=== PATIENT | male | born 1955 | race Caucasian/White ===

== ENCOUNTER 2017-05-15 18:30 | Emergency (ER) | payer MEDICAID ==
[~2017-05-15] VITALS: Ht 170.2 cm; Wt 79.4 kg
[2017-05-15] MEDS ORDERED: Mylanta II UD 30ml ORAL ONE (19:15)
[2017-05-15] MEDS ORDERED: Dicyclomine HCl 10mg/5ml oral soln ORAL ONE (19:15)
--- NOTE | 2017-05-15 19:26 | Emergency Room Report ---
History of Present Illness General Chief Complaint: Diarrhea Source: Patient Present Illness HPI Patient is a a 61-year-old male who presented after increased abdominal cramping and diarrhea. Patient had been seen at a clinic and was for the emergency department for tachycardia. Patient had been having diarrhea for several days which is watery in nature. Patient reports having some possible bad food exposure. He denies any fever. He denies any black or bloody stools. Patient had not been having any abdominal pain currently. He stated that he vomited several times earlier in the week but has not been vomiting regularly Allergies: Coded Allergies: No Known Allergies (Unverified , 05/15/17) Patient History Past Medical History: see triage record Reviewed Nursing Documentation: PMH: Agreed, PSxH: Agreed Nursing Documentation-PMH Hx Hypertension: Yes Hx Diabetes: Yes Review of Systems All Other Systems: negative except mentioned in HPI Physical Exam Vital Signs Date Time Temp Pulse Resp B/P (MAP) Pulse Ox O2 Delivery O2 Flow Rate FiO2 05/15/17 18:45 98.2 98 18 135/77 97 Room Air Sp02 EP Interpretation: reviewed, normal General Appearance: normal inspection, well appearing, no apparent distress, alert, GCS 15 Head: atraumatic ENT: normal ENT inspection, hearing grossly normal, normal voice Neck: normal inspection, full range of motion, supple, no bony tend Respiratory: normal inspection, lungs clear, normal breath sounds, no respiratory distress, no retraction, no wheezing Cardiovascular #1: regular rate, rhythm, no edema Gastrointestinal: normal inspection, normal bowel sounds, non tender, soft, no guarding, no hernia Genitourinary: no CVA tenderness Musculoskeletal: normal inspection, back normal, normal range of motion Neurologic: normal inspection, alert, responsive, speech normal Psychiatric: normal inspection, judgement/insight normal, mood/affect normal Skin: normal inspection, normal color, no rash Medical Decision Making Diagnostic Impression: Primary Impression: Dehydration Additional Impression: Gastroenteritis ER Course Patient presented for abdominal pain. Differential diagnoses included ischemic bowel, appendicitis, perforated viscus, abdominal aortic aneurysm, inferior myocardial infarction, viral gastroenteritis Because of complexity of patient's case laboratory testing and imaging studies were ordered. The patient was given IV fluids as well as an antispasmodic medication. The patient was noted to have improvement in his symptoms after IV hydration. The patient is advised to follow up with primary care doctor in 1-2 days. Patient is advised to return if any worsening condition or if any changes in status that are concerning. Labs Test 05/15/17 19:15 05/15/17 19:50 White Blood Count 7.0 K/UL (4.8-10.8) Red Blood Count 5.35 M/UL (4.70-6.10) Hemoglobin 16.4 G/DL (14.2-18.0) Hematocrit 46.3 % (42.0-52.0) Mean Corpuscular Volume 87 FL (80-99) Mean Corpuscular Hemoglobin 30.6 PG (27.0-31.0) Mean Corpuscular Hemoglobin Concent 35.4 G/DL (32.0-36.0) Red Cell Distribution Width 12.1 % (11.6-14.8) Platelet Count 214 K/UL (150-450) Mean Platelet Volume 6.4 FL (6.5-10.1) Neutrophils (%) (Auto) 57.6 % (45.0-75.0) Lymphocytes (%) (Auto) 30.0 % (20.0-45.0) Monocytes (%) (Auto) 8.2 % (1.0-10.0) Eosinophils (%) (Auto) 3.0 % (0.0-3.0) Basophils (%) (Auto) 1.1 % (0.0-2.0) Sodium Level 139 mEQ/L (135-145) Potassium Level 3.8 mEQ/L (3.4-4.9) Chloride Level 102 mEQ/L (98-107) Carbon Dioxide Level 24 mEQ/L (20-30) Anion Gap 13 (5-15) Blood Urea Nitrogen 18 mg/dL (7-23) Creatinine 0.9 mg/dL (0.7-1.2) Estimat Glomerular Filtration Rate > 60 mL/min (>60) Glucose Level 130 mg/dL (74-106) Calcium Level 9.5 mg/dL (8.6-10.2) Total Bilirubin 0.5 mg/dL (0.0-1.2) Aspartate Amino Transf (AST/SGOT) 21 U/L (5-40) Alanine Aminotransferase (ALT/SGPT) 31 U/L (3-41) Alkaline Phosphatase 100 U/L (40-129) Total Protein 7.0 g/dL (6.6-8.7) Albumin 4.8 g/dL (3.5-5.2) Globulin 2.2 g/dL Albumin/Globulin Ratio 2.1 (1.0-2.7) Lipase 18 U/L (< 60) Urine Color Pale yellow Urine Appearance Slightly cloudy Urine pH 5 (4.5-8.0) Urine Specific Crane 1.015 (1.005-1.035) Urine Protein 2+ (NEGATIVE) Urine Glucose (UA) 3+ (NEGATIVE) Urine Ketones Negative (NEGATIVE) Urine Occult Blood Negative (NEGATIVE) Urine Nitrite Negative (NEGATIVE) Urine Bilirubin Negative (NEGATIVE) Urine Urobilinogen 1 MG/DL (0.0-1.0) Urine Leukocyte Esterase Negative (NEGATIVE) Urine RBC 2-4 /HPF (0 - 0) Urine WBC 0-2 /HPF (0 - 0) Urine Squamous Epithelial Cells None /LPF (NONE/OCC) Urine Bacteria Few /HPF (NONE) Last Vital Signs Date Time Temp Pulse Resp B/P (MAP) Pulse Ox O2 Delivery O2 Flow Rate FiO2 05/15/17 18:45 98.2 98 18 135/77 97 Room Air Status: improved Disposition: HOME, SELF-CARE Condition: Stable Scripts Loperamide HCl (Loperamide) 2 Mg Capsule 2 MG ORAL Q4H, #20 CAP 0 Refills Prov: Antwon Grimaldo 05/15/17 Dicyclomine Hcl* (BENTYL*) 10 Mg Capsule 10 MG ORAL FOUR TIMES A DAY, #30 CAP Prov: Antwon Grimaldo 05/15/17 Antwon Grimaldo May 15, 2017 19:26
[2017-05-15 19:27] LABS: BASOPHILS % (AUTO) 1.1 % (0.0-2.0); MEAN CORPUSCULAR HEMOGLOBIN 30.6 PG (27.0-31.0); MEAN CORPUSCULAR HGB CONC 35.4 G/DL (32.0-36.0); MEAN CORPUSCULAR VOLUME 87 FL (80-99); MEAN PLATELET VOLUME 6.4 FL (6.5-10.1); MONOCYTES % (AUTO) 8.2 % (1.0-10.0); NEUTROPHILS % (AUTO) 57.6 % (45.0-75.0); PLATELET COUNT 214 K/UL (150-450); RED BLOOD COUNT 5.35 M/UL (4.70-6.10); RED CELL DISTRIBUTION WIDTH 12.1 % (11.6-14.8)
[2017-05-15 19:52] LABS: ALANINE AMINOTRANSFERASE 31 U/L (3-41); ALBUMIN/GLOBULIN RATIO 2.1 (1.0-2.7); ANION GAP 13 (5-15); ASPARTATE AMINO TRANSFERASE 21 U/L (5-40); CALCIUM 9.5 mg/dL (8.6-10.2); CARBON DIOXIDE 24 mEQ/L (20-30); CHLORIDE 102 mEQ/L (98-107); CREATININE 0.9 mg/dL (0.7-1.2); GLOMERULAR FILTRATION RATE > 60 mL/min (>60); HEMOLYSIS 8; LIPASE 18 U/L (< 60); POTASSIUM 3.8 mEQ/L (3.4-4.9); SODIUM 139 mEQ/L (135-145)
[2017-05-15 20:13] LABS: APPEARANCE,URINE SLIGHTLY CLOUDY; KETONES,URINE NEGATIVE (NEGATIVE); LEUKOCYTE ESTERASE ,URINE NEGATIVE (NEGATIVE); NITRITE,URINE NEGATIVE (NEGATIVE); PH,URINE 5 (4.5-8.0); PROTEIN,URINE 2+ (NEGATIVE); UROBILINOGEN,URINE 1 MG/DL (0.0-1.0)
[2017-05-15] MEDS ORDERED: IMODIUM2 MG ORAL (20:18)
[2017-05-15] MEDS ORDERED: BENTYL10 MG ORAL (20:18)
[2017-05-15 20:34] VITALS: BP 135/77
[2017-05-15 20:36] LABS: BACTERIA,URINE FEW /HPF; WBC,URINE 0-2 /HPF (0 - 0)
== END 2017-05-15 20:36 | disposition home or self-care (01) ==
LOC: EMR 19:05
DX: E86.0 Dehydration (principal); K52.9 Noninfective gastroenteritis and colitis, unspecified; E11.9 Type 2 diabetes mellitus without complications; I10 Essential (primary) hypertension
CPT/HCPCS: 36415; 80053; 81003; 83690; 85025; 96360; 96361; 96374; 99284

== ENCOUNTER 2017-06-10 17:31 | Emergency (ER) | payer MEDICAID ==
[~2017-06-10] VITALS: Ht 167.6 cm; Wt 79.4 kg
[~2017-06-10 17:31] MED LIST: BENTYL10 MG ORAL; IMODIUM2 MG ORAL
--- NOTE | 2017-06-10 18:26 | Emergency Room Report ---
History of Present Illness General Chief Complaint: Chest Pain Source: Patient Present Illness HPI 61 Yo Male presents to the ED C/O Cp 5/10 in severity tight and dull in nature since yesterday afternoon. pt. reports having recurrent episodes of his symptoms x 3 months. pt. reports hx of depression for which he is rx'd Lexapro and Adderall. pt. denies hx of CAD, SC, or hyperlipidemia. pt. denies wheezing, cough, or MENDIETA. pt. reports symptoms of chest tightness and inability to take a deep breath even at rest with no relief. pt. denies abdominal pain, nausea, vomiting, fevers, chills, recent illness, or recent travel. Denies palpitations , paresthesias, joint pain, swelling, rashes, trauma /fall or sudden severe AGUIRRE. Allergies: Coded Allergies: No Known Allergies (Unverified , 05/15/17) Patient History Past Medical History: see triage record Past Surgical History: none Pertinent Family History: none Immunizations: UTD Reviewed Nursing Documentation: PMH: Agreed, PSxH: Agreed Nursing Documentation-PMH Hx Hypertension: Yes Hx Diabetes: Yes History Of Psychiatric Problem: Yes - Schizophrenia Review of Systems All Other Systems: negative except mentioned in HPI Physical Exam Vital Signs Date Time Temp Pulse Resp B/P (MAP) Pulse Ox O2 Delivery O2 Flow Rate FiO2 06/10/17 17:45 98.4 97 16 150/82 98 Room Air Sp02 EP Interpretation: reviewed, normal General Appearance: alert, GCS 15, non-toxic, mild distress Head: normocephalic, atraumatic Eyes: bilateral eye normal inspection, bilateral eye PERRL ENT: hearing grossly normal, normal voice Neck: full range of motion Respiratory: lungs clear, normal breath sounds, no respiratory distress, no wheezing, speaking full sentences, other - reproducible tenderness to palpation of the left anterior chest. Cardiovascular #1: regular rate, rhythm, no edema, normal capillary refill Gastrointestinal: normal bowel sounds, non tender, soft, no guarding, no rebound Musculoskeletal: back normal, gait/station normal, normal range of motion, non- tender, no calf tenderness Neurologic: alert, oriented x3, responsive, motor strength/tone normal, sensory intact, speech normal Psychiatric: judgement/insight normal, memory normal, mood/affect normal, anxious Skin: normal color, no rash, warm/dry, well hydrated Medical Decision Making PA Attestation Dr. Amaro is my supervising Physician whom patient management has been discussed with. Diagnostic Impression: Primary Impression: Nonspecific chest pain ER Course 61 Yo Male presents to the ED C/O Cp 5/10 in severity tight and dull in nature since yesterday afternoon. pt. reports having recurrent episodes of his symptoms x 3 months. pt. reports hx of depression for which he is rx'd Lexapro and Adderall. pt. denies hx of CAD, SC, or hyperlipidemia. pt. denies wheezing, cough, or MENDIETA. pt. reports symptoms of chest tightness and inability to take a deep breath even at rest with no relief. pt. denies abdominal pain, nausea, vomiting, fevers, chills, recent illness, or recent travel. Denies palpitations , paresthesias, joint pain, swelling, rashes, trauma /fall or sudden severe AGUIRRE. Ddx considered but are not limited to SC, pneumonia, contusion, costochondritis , PE, ACS, Shoulder strain, Chest wall contusion. aortic dissection. Vital signs: are WNL, pt. is afebrile H&PE are most consistent with reproducible CP, highly suspect anxiety related as symptoms x 1 month intermittently. pt. reports being rx'd adderall ORDERS: - EK BPM NSR - no acute ST changes reviewed by Dr. Amaro , this interpretation was scribed by HOLLIE Monroy -CBC: unremarkable -CMP: WNL/Unremarkable -CK-MB: Unremarkable -Troponins: WNL less than 0.3 CXR: No consolidation, effusion, pneumothorax or acute cardiopulmonary findings per soft read in ED by Dr. Amaro - UDS: positive only for amphetamines ED INTERVENTIONS: - ASA PO - PT. placed on cardiac monitoring. - IV Access - Toradol IV -Ativan PO - Pt. reports complete cessation of his symptoms upon re-evaluation after receiving above medications. I believe pt. symptoms most likely anxiety related and can be a side effect of Adderall. d/w pt. to discuss with his PMD for medication adjustments. Encouraged pt. to return promptly to the ED with worsening or new symptoms. DISCHARGE: At this time pt. is stable for d/c to home. Will provide printed patient care instructions, and any necessary prescriptions. Care plan and follow up instructions have been discussed with the patient prior to discharge. Labs Test 06/10/17 18:35 06/10/17 19:32 Sodium Level 139 mEQ/L (135-145) Potassium Level 4.6 mEQ/L (3.4-4.9) Chloride Level 101 mEQ/L (98-107) Carbon Dioxide Level 22 mEQ/L (20-30) Anion Gap 16 (5-15) Blood Urea Nitrogen 17 mg/dL (7-23) Creatinine 0.9 mg/dL (0.7-1.2) Estimat Glomerular Filtration Rate > 60 mL/min (>60) Glucose Level 122 mg/dL (74-106) Calcium Level 9.2 mg/dL (8.6-10.2) Total Bilirubin 0.4 mg/dL (0.0-1.2) Aspartate Amino Transf (AST/SGOT) 45 U/L (5-40) Alanine Aminotransferase (ALT/SGPT) 35 U/L (3-41) Alkaline Phosphatase 87 U/L (40-129) Total Creatine Kinase 151 U/L (38-174) Creatine Kinase MB 3.0 ng/mL (< 6.7) Creatine Kinase MB Relative Index 1.9 Troponin I < 0.30 ng/mL (<=0.30) Total Protein 6.9 g/dL (6.6-8.7) Albumin 5.2 g/dL (3.5-5.2) Globulin 1.7 g/dL Albumin/Globulin Ratio 3.0 (1.0-2.7) White Blood Count 6.1 K/UL (4.8-10.8) Red Blood Count 4.92 M/UL (4.70-6.10) Hemoglobin 14.9 G/DL (14.2-18.0) Hematocrit 43.3 % (42.0-52.0) Mean Corpuscular Volume 88 FL (80-99) Mean Corpuscular Hemoglobin 30.3 PG (27.0-31.0) Mean Corpuscular Hemoglobin Concent 34.4 G/DL (32.0-36.0) Red Cell Distribution Width 12.3 % (11.6-14.8) Platelet Count 170 K/UL (150-450) Mean Platelet Volume 7.1 FL (6.5-10.1) Neutrophils (%) (Auto) 59.3 % (45.0-75.0) Lymphocytes (%) (Auto) 28.7 % (20.0-45.0) Monocytes (%) (Auto) 9.5 % (1.0-10.0) Eosinophils (%) (Auto) 1.4 % (0.0-3.0) Basophils (%) (Auto) 1.1 % (0.0-2.0) Urine Opiates Screen Negative (NEGATIVE) Urine Barbiturates Screen Negative (NEGATIVE) Phencyclidine (PCP) Screen Negative (NEGATIVE) Urine Amphetamines Screen Positive (NEGATIVE) Urine Benzodiazepines Screen Negative (NEGATIVE) Urine Cocaine Screen Negative (NEGATIVE) Urine Marijuana (THC) Screen Negative (NEGATIVE) EKG Diagnostic Results EP Interpretation: Dr. Amaro Rate: normal - 91 BPM Rhythm: NSR ST Segments: no acute changes ASA given to the pt in ED: No PA Scribe Text this interpretation was scribed by HOLLIE Monroy Last Vital Signs Date Time Temp Pulse Resp B/P (MAP) Pulse Ox O2 Delivery O2 Flow Rate FiO2 06/10/17 17:45 98.4 97 16 150/82 98 Room Air Disposition: HOME, SELF-CARE Condition: Stable Scripts Ibuprofen* (MOTRIN*) 600 Mg Tablet 600 MG ORAL THREE TIMES A DAY, #30 TAB 0 Refills Prov: Kierra Monroy 06/10/17 Patient Instructions: Nonspecific Chest Pain Additional Instructions: Take medications as directed. Follow up with a Primary Care Provider in 3-5 days, even if your symptoms have resolved. --Please review list of primary care clinics, if you do not already have a primary care provider Return sooner to ED if new symptoms occur, or current symptoms become worse. - Please note that this Emergency Department Report was dictated using [employer] frame tender technology software, occasionally this can lead to erroneous entry secondary to interpretation by the dictation equipment. Kierra Monroy Jun 10, 2017 18:26
[2017-06-10 19:07] LABS: ALANINE AMINOTRANSFERASE 35 U/L (3-41); ANION GAP 16 (5-15); ASPARTATE AMINO TRANSFERASE 45 U/L (5-40); CALCIUM 9.2 mg/dL (8.6-10.2); CARBON DIOXIDE 22 mEQ/L (20-30); CHLORIDE 101 mEQ/L (98-107); CREATININE 0.9 mg/dL (0.7-1.2); GLOMERULAR FILTRATION RATE > 60 mL/min (>60); HEMOLYSIS 200; POTASSIUM 4.6 mEQ/L (3.4-4.9); SODIUM 139 mEQ/L (135-145); TOTAL PROTEIN 6.9 g/dL (6.6-8.7); TROPONIN I < 0.30 ng/mL (<=0.30)
[2017-06-10 20:16] LABS: BASOPHILS % (AUTO) 1.1 % (0.0-2.0); EOSINOPHILS % (AUTO) 1.4 % (0.0-3.0); LYMPHOCYTES % (AUTO) 28.7 % (20.0-45.0); MEAN CORPUSCULAR HEMOGLOBIN 30.3 PG (27.0-31.0); MEAN CORPUSCULAR HGB CONC 34.4 G/DL (32.0-36.0); MEAN CORPUSCULAR VOLUME 88 FL (80-99); MEAN PLATELET VOLUME 7.1 FL (6.5-10.1); MONOCYTES % (AUTO) 9.5 % (1.0-10.0); NEUTROPHILS % (AUTO) 59.3 % (45.0-75.0); PLATELET COUNT 170 K/UL (150-450); RED BLOOD COUNT 4.92 M/UL (4.70-6.10); RED CELL DISTRIBUTION WIDTH 12.3 % (11.6-14.8); WHITE BLOOD COUNT 6.1 K/UL (4.8-10.8)
[2017-06-10] MEDS ORDERED: Ketorolac 30mg Inj IV ONE (21:00)
[2017-06-10] MEDS ORDERED: LORazepam 0.5mg tab ORAL ONE (21:00)
[2017-06-10] MEDS ORDERED: IBUPROFEN600 MG ORAL (21:33)
[2017-06-10 21:51] VITALS: BP 131/76
[2017-06-10 21:52] VITALS: BP 150/82
--- NOTE | 2017-06-11 10:18 | Diagnostic Imaging Report ---
Indication: Chest pain Technique: One view of the chest Comparison: none Findings: Lungs and pleural spaces are clear. Heart size is normal. Impression: No acute process
== END 2017-06-10 21:43 | disposition home or self-care (01) ==
LOC: EMR 17:53
DX: R07.89 Other chest pain (principal); I10 Essential (primary) hypertension; E11.9 Type 2 diabetes mellitus without complications; F20.9 Schizophrenia, unspecified
CPT/HCPCS: 36415; 71010; 80053; 80300; 82550; 82553; 84484; 85025; 93005; 99284